=== PATIENT | female | born 1985 | race Caucasian/White ===

== ENCOUNTER 2019-03-24 02:09 | Emergency (ER) | payer MEDICAID ==
[~2019-03-24] VITALS: Ht 165.1 cm; Wt 100.1 kg
[2019-03-24 02:25] VITALS: Ht 165.1 cm; Wt 100.1 kg
[2019-03-24] MEDS ORDERED: SOD CHLORIDE 0.9% 1,000 ML IV STA (02:50)
[2019-03-24] MEDS ORDERED: morphine 4 MG/ML VIAL IV STA (03:58)
[2019-03-24] MEDS ORDERED: INSULIN REGULAR, HUMAN 100 UNIT/1 ML 3ML VIAL IVP STA (04:03)
[2019-03-24] MEDS ORDERED: DEXTROSE 50% 50 ML SYRINGE IV PRN (04:30)
[2019-03-24] MEDS ORDERED: SOD CHLORIDE 0.9% 1,000 ML IV ONE (05:00)
[2019-03-24] MEDS ORDERED: DIPHENHYDRAMINE 25 MG CAP PO ONE (05:00)
[2019-03-24 06:25] VITALS: BP 122/75; PULSE 81; RESP 18
== END 2019-03-24 06:53 | disposition home or self-care (01) ==
LOC: E/R 02:09
DX: E11.65 Type 2 diabetes mellitus with hyperglycemia (principal); Z79.4 Long term (current) use of insulin
CPT/HCPCS: 80048; 81003; 81025; 82962; 85025; 96361; 96374; 96375; J1815; J2270; J7030; Z7502; Z7610